=== PATIENT | male | born 1985 | race Caucasian/White ===

== ENCOUNTER 2016-10-22 16:42 | Emergency (ER) | payer BC ==
[2016-10-22 16:55] VITALS: BP 127/93
--- NOTE | 2016-10-23 01:32 | ER ---
DATE SEEN: 10/22/2016 TIME SEEN: 04:45 p.m. CHIEF COMPLAINT: Laceration. HISTORY OF PRESENT ILLNESS: This is a 31-year-old male with a laceration to the left hand. This happened when his trailer caught a tree and dropped him to the ground. PAST MEDICAL HISTORY: Otherwise healthy. His tetanus was about two years ago but is not 100% sure. ALLERGIES: He has no allergies. PHYSICAL EXAMINATION: VITAL SIGNS: Afebrile. Blood pressure 127/93. EXTREMITIES: Left hand showed a 1.5 cm size deep incision in the palmar aspect of the hand. He has full range of motion of the MCP and PIP joints. Peripheral pulses are present. Sensation is intact. IMPRESSION: Simple laceration. PLAN: Lidocaine was infiltrated for local anesthesia. I placed four stitches of 4-0 Ethilon and discharged him home. I advised him to call his clinic tomorrow to make sure that he had tetanus, otherwise be updated within 72 hours. Follow up in 1 week for removal of stitches. /[id number] HAFSA/ABBE
== END 2016-10-22 17:25 | disposition home or self-care (01) ==
LOC: FB.ED 16:42
DX: S61.412A Laceration without foreign body of left hand, initial encounter (principal); X58.XXXA Exposure to other specified factors, initial encounter
CPT/HCPCS: 12001; 99282